=== PATIENT | male | born 1945 | race Caucasian/White ===

== ENCOUNTER 2020-12-02 22:19 | Emergency (ER) | payer MEDICARE, OTHER ==
[~2020-12-02] VITALS: Ht 167.6 cm; Wt 73.5 kg
[2020-12-02 22:20] VITALS: BP 169/67
== END 2020-12-03 00:15 | disposition left against medical advice (07) ==
LOC: ER 22:19
DX: H57.11 Ocular pain, right eye (principal); Z53.21 Procedure and treatment not carried out due to patient leaving prior to being seen by health care provider